=== PATIENT | female | born 1965 | race American Indian/Alaskan Native ===

== ENCOUNTER 2017-02-20 15:46 | Outpatient (CLI) | payer OTHER ==
--- NOTE | 2017-02-21 14:06 | Mammography Report ---
BILATERAL DIGITAL SCREENING MAMMOGRAM with CAD : 02/20/17 15:46:00 CLINICAL: Routine screening. COMPARISON:08/30/15 and 09/14/15 FINDINGS: The breasts are heterogeneously dense, which may obscure small masses.Stable right benign cyst at 4 o'clock. No mass, architectural distortion or suspicious calcifications. IMPRESSION: No mammographic evidence of malignancy. BI-RADS CATEGORY: 2 -- Benign RECOMMENDATION: Routine mammographic screening in one year. COMMENT: Patient follow-up letters are generated by our [employer] application.
== END 2017-02-20 15:47 | disposition home or self-care (01) ==
LOC: SPVWC 15:46
PROVIDERS: ATTEND Family Medicine
DX: Z12.31 Encounter for screening mammogram for malignant neoplasm of breast (principal)
CPT/HCPCS: 77067; G0202

== ENCOUNTER 2019-04-06 14:41 | Outpatient (CLI) | payer OTHER ==
--- NOTE | 2019-04-06 15:56 | Mammography Report ---
DIGITAL SCREENING MAMMOGRAM WITH CAD, 04/06/2019 INDICATION: Routine screening mammography. TECHNIQUE: Digital bilateral 2D mammography was obtained in the craniocaudal and mediolateral obliq ue projections. This examination was interpreted with the benefit of Computer-Aided Detection analysi s. COMPARISON: 02/20/2017 and 08/30/2015 FINDINGS: Breast Density: The breasts are heterogeneously dense, which may obscure small masses. There is no evidence of dominant mass, suspicious calcifications or architectural distortion in eithe r breast. IMPRESSION: No mammographic evidence of malignancy. Follow up recommendation: Routine yearly BI-RADS Category 2: Benign. A "normal" or negative report should not discourage follow up or biopsy of a clinically significant f inding. A written summary of these findings will be mailed to the patient. The patient will be entered into a mammography reporting system which will generate a reminder letter for the patient's next appointmen t at the appropriate interval. The [employer] recommends yearly mammograms starting at age 40 and continuing as l terrell as a woman is in good health. Breast MRI is recommended for women with an approximate 20-25% or greater lifetime risk of breast cancer, including women with a strong family history of breast or ova jami cancer or who have been treated for Hodgkin's disease. Signer Name: Brayden Youssef MD Signed: 04/06/2019 3:51 PM Workstation Name: [id number]
== END 2019-04-06 14:42 | disposition home or self-care (01) ==
LOC: SPVWC 14:41
PROVIDERS: ATTEND Family Medicine
DX: Z12.31 Encounter for screening mammogram for malignant neoplasm of breast (principal)
CPT/HCPCS: 77067

== ENCOUNTER 2020-08-28 15:46 | Outpatient (CLI) | payer OTHER ==
--- NOTE | 2020-08-29 11:33 | Mammography Report ---
DIGITAL SCREENING MAMMOGRAM WITH CAD, 08/29/2020 INDICATION: Routine screening mammography. TECHNIQUE: Digital bilateral 2D mammography was obtained in the craniocaudal and mediolateral obliq ue projections. This examination was interpreted with the benefit of Computer-Aided Detection analysi s. COMPARISON: 04/06/2019 FINDINGS: Breast Density: There are scattered areas of fibroglandular density. There is no evidence of dominant mass, suspicious calcifications or architectural distortion in eithe r breast. IMPRESSION: Follow up recommendation: Routine yearly BI-RADS Category 1: Negative. A "normal" or negative report should not discourage follow up or biopsy of a clinically significant f inding. A written summary of these findings will be mailed to the patient. The patient will be entered into a mammography reporting system which will generate a reminder letter for the patient's next appointmen t at the appropriate interval. The [employer] recommends yearly mammograms starting at age 40 and continuing as l terrell as a woman is in good health. Breast MRI is recommended for women with an approximate 20-25% or greater lifetime risk of breast cancer, including women with a strong family history of breast or ova jami cancer or who have been treated for Hodgkin's disease. Signer Name: Chris Cruz MD Signed: 08/29/2020 11:29 AM Workstation Name: [id number]
== END 2020-08-28 15:47 | disposition home or self-care (01) ==
LOC: SPVWC 15:46
PROVIDERS: ATTEND Family Medicine
DX: Z12.31 Encounter for screening mammogram for malignant neoplasm of breast (principal)
CPT/HCPCS: 77067

== ENCOUNTER 2021-11-29 08:19 | Emergency (ER) | payer SELFPAY ==
[2021-11-29 08:31] VITALS: BP 178/96
[2021-11-29] MEDS ORDERED: levETIRAcetam 1000 MG/NS 0.75% 1,000 MG/100 ML BAG IV ONE (11:35)
[2021-11-29] MEDS ORDERED: SODIUM CHLORIDE 0.9% 1000 ML 1,000 ML IV ONE (11:35)
--- NOTE | 2021-11-29 11:40 | Emergency Department Report ---
ED Seizure HPI - General Chief Complaint: Extremity Problem,Nontraumatic Stated Complaint: MUSCLE SPASMS Time Seen by Provider: 11/29/21 10:31 Source: EMS Mode of arrival: Wheelchair Limitations: Physical Limitation - History of Present Illness Initial Comments: 86-year-old female with a history of epileptic seizure who called the EMS last night for an episode of seizure and patient was evaluated accessed not to need an ER visit. She however woke up this morning with left lower leg muscle cramps. No fall reported. Pt has history of CVA with left sided weakness and get around with walking cane. She says it is more difficult to walk on her left leg now since the seizure last night. No other modifying or associated factors reported. MD Complaint: seizure - Related Data Previous Rx's Medication Instructions Recorded Last Taken Type Oxycodone HCl/Acetaminophen 1 each PO Q6HR PRN #30 tablet 07/08/15 Unknown Rx [Percocet 10/325 mg] Ondansetron (Nf) [Zofran TAB] 8 mg PO Q8HR PRN 5 Days #15 tablet 11/29/21 Unknown Rx NS cephALEXin [Keflex] 500 mg PO Q12HR 5 Days #10 cap NS 11/29/21 Unknown Rx Allergies Allergy/AdvReac Type Severity Reaction Status Date / Time glipizide Allergy Unknown Verified 07/08/15 01:35 ED Review of Systems ROS: Stated complaint: MUSCLE SPASMS Other details as noted in HPI Comment: All other systems reviewed and negative Musculoskeletal: myalgia, other (muscle cramps) Neurological: other (seizure) ED Past Medical Hx - Past Medical History Hx Hypertension: Yes Hx Diabetes: Yes - Surgical History Additional Surgical History: hysterectomy, myomyectomy - Social History Smoking Status: Never Smoker Substance Use Type: None - Medications Home Medications: Home Medications Medication Instructions Recorded Confirmed Last Taken Type Oxycodone HCl/Acetaminophen 1 each PO Q6HR PRN #30 tablet 07/08/15 Unknown Rx [Percocet 10/325 mg] Ondansetron (Nf) [Zofran TAB] 8 mg PO Q8HR PRN 5 Days #15 tablet 11/29/21 Unknown Rx NS cephALEXin [Keflex] 500 mg PO Q12HR 5 Days #10 cap NS 11/29/21 Unknown Rx ED Physical Exam - General Limitations: Physical Limitation General appearance: alert, in no apparent distress - Head Head exam: Present: normal inspection - Eye Eye exam: Present: normal appearance Pupils: Present: normal accommodation - ENT ENT exam: Present: normal exam, normal orophraynx, mucous membranes dry - Neck Neck exam: Present: normal inspection, full ROM. Absent: tenderness - Respiratory Respiratory exam: Present: normal lung sounds bilaterally. Absent: respiratory distress, accessory muscle use - Cardiovascular Cardiovascular Exam: Present: regular rate, normal rhythm, normal heart sounds - GI/Abdominal GI/Abdominal exam: Present: soft, normal bowel sounds. Absent: distended, tenderness - Extremities Exam Extremities exam: Present: normal inspection, tenderness (mild tenderness to palpation ), normal capillary refill. Absent: pedal edema - Back Exam Back exam: Absent: tenderness - Neurological Exam Neurological exam: Present: alert, oriented X3 - Psychiatric Psychiatric exam: Present: normal affect, normal mood - Skin Skin exam: Present: warm, normal color ED Course Vital Signs 11/29/21 08:24 Temperature 98.5 F Pulse Rate 104 H Respiratory 20 Rate Blood Pressure 178/96 [Left] O2 Sat by Pulse 98 Oximetry ED Medical Decision Making - Lab Data Result diagrams: 11/29/21 12:04 11/29/21 12:04 - Medical Decision Making Here with possible seizure -- but considering this patients age other differential such as stroke, myocardial infarction, hepatic encephalopathy, systemic infection with sepsis cannot be ruled out. In order to rule out those above we will go ahead and order CBC, CMP, urinalysis, for any infectious process or electrolyte abnormality and thyroid panel for any hypo or hyper thyroidism. In the meantime we will go ahead and give immediate Keppra 1 g IV piggyback x1. while waiting for the above labs Labs reviewed -- noted with leukocytosis with elevated wbc in the urine will treat for uTI-- and d/c home to close follow with her PCP-- Also noted with elevated BUN 29 with normal cr-- 1.2 likely dehydration-- given ivf ns 1L bolus-- Critical care attestation.: If time is entered above; I have spent that time in minutes in the direct care of this critically ill patient, excluding procedure time. ED Disposition Clinical Impression: Seizure, Muscle cramps, Dehydration UTI (urinary tract infection) Qualifiers: Urinary tract infection type: site unspecified Hematuria presence: without hematuria Qualified Code(s): N39.0 - Urinary tract infection, site not specified Disposition: 01 HOME / SELF CARE / HOMELESS Is pt being admited?: No Does the pt Need Aspirin: No Condition: Stable Instructions: Epilepsy, [id number], Seizure, Adult, [id number], Urinary Tract Infection, Adult, [id number], Dehydration, Adult, [id number] Additional Instructions: Increase your daily fluid to help your hydration : Follow-up with your primary doctor in the next 3 to 5 days for progress Take and complete your antibiotics as prescribed Please do not hesitate to call or return to emergency room if your symptoms worsen Prescriptions: cephALEXin [Keflex] 500 mg PO Q12HR 5 Days #10 cap NS Ondansetron (Nf) [Zofran TAB] 8 mg PO Q8HR PRN 5 Days #15 tablet NS PRN Reason: Nausea And Vomiting Referrals: VENKATA CARPIO MD [Referring] - 3-5 Days Time of Disposition: 14:44
[2021-11-29 12:57] LABS: Alanine Aminotransferase 22 units/L (7-56); Albumin 4.9 g/dL (3.9-5); BUN/Creatinine Ratio 24; Basophils # (Auto) 0.1 K/mm3 (0.0-0.1); Basophils % (Auto) 0.7 % (0.0-1.8); Blood Urea Nitrogen 29 mg/dL (7-17); Calcium 9.8 mg/dL (8.4-10.2); Eosinophils # (Auto) 0.1 K/mm3 (0.0-0.4); Eosinophils % (Auto) 0.5 % (0.0-4.3); Hemolysis Index 2; Lymphocytes # (Auto) 1.3 K/mm3 (1.2-5.4); Lymphocytes % (Auto) 11.6 % (13.4-35.0); Mean Corpuscular HGB Conc 30 % (30-34); Mean Corpuscular Volume 75 fl (79-97); Monocytes # (Auto) 0.4 K/mm3 (0.0-0.8); Monocytes % (Auto) 3.2 % (0.0-7.3); Platelet Count 419 K/mm3 (140-440); Red Cell Distribution Width 13.7 % (13.2-15.2)
[2021-11-29 12:59] LABS: Hematocrit 35.1 % (30.3-42.9); Hemoglobin 10.6 gm/dl (10.1-14.3)
[2021-11-29 13:08] LABS: Free T4 (Free Thyroxine) 0.85 ng/dL (0.76-1.46)
[2021-11-29 13:15] LABS: Amphetamine Screen,Urine Negative; Bacteria,Urine 2+ /HPF (Negative); Benzodiazepines Screen,Urine Negative; Cannabinoid Screen,Urine Negative; Cocaine Screen,Urine Negative; Methadone Screen,Urine Negative; Mucus,Urine FEW /HPF; Opiate Screen,Urine Negative
[2021-11-29 13:17] LABS: Color,Urine Straw (Yellow)
[2021-11-29] MEDS ORDERED: SODIUM CHLORIDE 0.9% 1000 ML 1,000 ML ONE (14:41)
[2021-11-29] MEDS ORDERED: ACETAMINOPHEN 500 MG TAB PO ONE (15:28)
== END 2021-11-29 13:00 | disposition home or self-care (01) ==
LOC: ED 08:19
DX: R56.9 Unspecified convulsions (principal); R25.2 Cramp and spasm; E86.0 Dehydration; N39.0 Urinary tract infection, site not specified; Z88.8 Allergy status to other drugs, medicaments and biological substances; I10 Essential (primary) hypertension; E11.9 Type 2 diabetes mellitus without complications
CPT/HCPCS: 36415; 80053; 80177; 80307; 81001; 82550; 84439; 84443; 85025; 96374; 99284; J7030; 96361